=== PATIENT | male | born 1965 | race African-American/Black ===

== ENCOUNTER 2017-02-20 09:46 | Emergency (ER) | payer OTHER ==
[~2017-02-20] VITALS: Ht 182.9 cm; Wt 92.0 kg
[~2017-02-20 09:46] MED LIST: FLAG500T PO; HYDR-3533 PO; LEVA500T33 PO; OMEP20TA39 PO
[2017-02-20 09:48] VITALS: BP 136/90; PULSE 80; RESP 20; TEMP 97.9; O2SAT 98
[2017-02-20] MEDS ORDERED: VITA200013 PO (09:50)
--- NOTE | 2017-02-20 10:14 | PD ---
HPI Chief Complaint: Abdominal Pain Time Seen by Provider: 10:14 Travel History International Travel<30 days: No Contact w/Intl Traveler<30days: No Traveled to known affect area: No History of Present Illness HPI 51-year-old male came to the emergency room with severe right upper quadrant pain that started 3 days ago. No history of vomiting or diarrhea. No history of constipation. Patient says pain is 8 out of 10 and feels like a severe stabbing pain. No radiation of the pain. He's never had this kind of pain in the past. No history of fever or chills. Patient has never had any abdominal surgeries in the past. He claims to be otherwise a healthy person. As he takes vitamin D pills every day but stopped taking a few days ago. He occasionally drinks alcohol maybe once a month. [facility] Past Medical History Narrative Medical List of his past medical, surgical, social and family history is reviewed from the nursing note. Heart Rhythm Problems: No Cardiac Catheterization: No Cardiovascular Problems: No High Cholesterol: Yes Congestive Heart Failure: No Diabetes: No GERD: Yes Influenza Vaccination: No Past Surgical History Coronary Artery Bypass Graft: No Oral Surgery: Yes (WISDOM TEETH) Tonsillectomy: Yes Social History Alcohol Use: No Tobacco Use: No Substance Use: No Allergies-Medications (Allergen,Severity, Reaction): Coded Allergies: No Known Allergies (Verified , 02/20/17) Comments No known drug allergies. Reported Meds & Prescriptions Reported Meds & Active Scripts Active Protonix (Pantoprazole Sodium) 20 Mg Tab 20 Mg PO DAILY Reported Vitamin D (Cholecalciferol) 2,000 Unit Cap Unknown Dose PO DAILY Narrative Medication List of his allergies reviewed from the nursing note. Review of Systems Except as stated in HPI: all other systems reviewed are Neg Physical Exam Narrative GENERAL: Awake, alert, moderate distress SKIN: Focused skin assessment warm/dry. HEAD: Atraumatic. Normocephalic. EYES: Pupils equal and round. No scleral icterus. No injection or drainage. ENT: No nasal bleeding or discharge. Mucous membranes pink and moist. NECK: Trachea midline. No JVD. CARDIOVASCULAR: Regular rate and rhythm. No murmur appreciated. RESPIRATORY: No accessory muscle use. Clear to auscultation. Breath sounds equal bilaterally. GASTROINTESTINAL: Right upper quadrant tenderness with guarding. Nondistended. Hepatic and splenic margins not palpable. MUSCULOSKELETAL: No obvious deformities. No clubbing. No cyanosis. No edema. NEUROLOGICAL: Awake and alert. No obvious cranial nerve deficits. Motor grossly within normal limits. Normal speech. PSYCHIATRIC: Appropriate mood and affect; insight and judgment normal. Data Data Last Documented VS Orders Orders Complete Blood Count With Diff (02/20/17 10:37) Comprehensive Metabolic Panel (02/20/17 10:37) Lipase (02/20/17 10:37) Urinalysis - C+S If Indicated (02/20/17 10:37) Ct Abd/Pel W/O Iv Contrast (02/20/17 10:37) Iv Access Insert/Monitor (02/20/17 10:37) Ecg Monitoring (02/20/17 10:37) Oximetry (02/20/17 10:37) Morphine Inj (Morphine Inj) (02/20/17 10:45) Ondansetron Inj (Zofran Inj) (02/20/17 10:45) Sodium Chlor 0.9% 1000 Ml Inj (Ns 1000 M (02/20/17 10:37) Sodium Chloride 0.9% Flush (Ns Flush) (02/20/17 10:45) Ed Poc Ultrasound (02/20/17 10:37) Labs Laboratory Tests Test 02/20/17 10:50 02/20/17 12:10 White Blood Count 5.6 TH/MM3 Red Blood Count 5.01 MIL/MM3 Hemoglobin 14.6 GM/DL Hematocrit 43.0 % Mean Corpuscular Volume 85.8 FL Mean Corpuscular Hemoglobin 29.2 PG Mean Corpuscular Hemoglobin Concent 34.0 % Red Cell Distribution Width 12.6 % Platelet Count 239 TH/MM3 Mean Platelet Volume 9.8 FL Neutrophils (%) (Auto) 52.8 % Lymphocytes (%) (Auto) 34.6 % Monocytes (%) (Auto) 9.4 % Eosinophils (%) (Auto) 2.7 % Basophils (%) (Auto) 0.5 % Neutrophils # (Auto) 2.9 TH/MM3 Lymphocytes # (Auto) 1.9 TH/MM3 Monocytes # (Auto) 0.5 TH/MM3 Eosinophils # (Auto) 0.1 TH/MM3 Basophils # (Auto) 0.0 TH/MM3 CBC Comment DIFF FINAL Differential Comment Blood Urea Nitrogen 11 MG/DL Creatinine 1.11 MG/DL Random Glucose 122 MG/DL Total Protein 7.5 GM/DL Albumin 3.8 GM/DL Calcium Level 8.5 MG/DL Alkaline Phosphatase 67 U/L Aspartate Amino Transf (AST/SGOT) 35 U/L Alanine Aminotransferase (ALT/SGPT) 55 U/L Total Bilirubin 0.4 MG/DL Sodium Level 137 MEQ/L Potassium Level 4.4 MEQ/L Chloride Level 107 MEQ/L Carbon Dioxide Level 25.6 MEQ/L Anion Gap 4 MEQ/L Estimat Glomerular Filtration Rate 85 ML/MIN Lipase 279 U/L Urine Color YELLOW Urine Turbidity CLEAR Urine pH 6.5 Urine Specific [place] 1.024 Urine Protein NEG mg/dL Urine Glucose (UA) NEG mg/dL Urine Ketones NEG mg/dL Urine Occult Blood NEG Urine Nitrite NEG Urine Bilirubin NEG Urine Urobilinogen LESS THAN 2.0 MG/DL Urine Leukocyte Esterase NEG Urine RBC LESS THAN 1 /hpf Urine WBC LESS THAN 1 /hpf Urine Mucus FEW /lpf Microscopic Urinalysis Comment CULT NOT INDICATED MDM Medical Decision Making Medical Screen Exam Complete: Yes Emergency Medical Condition: Yes Medical Record Reviewed: Yes Differential Diagnosis Acute cholecystitis, biliary colic, acute pancreatitis, acute appendicitis Narrative Course 1:31 PM blood test results and the CAT scan are completely within normal limit. My bedside ultrasound earlier did not show any cholelithiasis. I'll discharge the patient home. He was medicated for pain. Procedures Procedure Narrative Emergency department right upper quadrant ultrasound was performed with patient consent. Curvilinear probe was used in the transverse and sagittal views within the right upper quadrant revealing gallbladder without obvious wall thickening, cholecystic fluid, or cholelithiasis. EKG Prior to Arrival: No Diagnosis Primary Impression: Abdominal pain Qualified Codes: R10.11 - Right upper quadrant pain Referrals: Primary Care Physician Additional Instructions: Please return to the ER if the condition worsens or any other new concerns. Take the medication as per the prescription direction. Follow-up with your primary Care physician in couple of days. Asked them to refer you to a GI specialist for an endoscopy. Med/Other Pt SpecificInfo: Prescription(s) given Scripts Pantoprazole (Protonix) 20 Mg Tab 20 MG PO DAILY for Reflux, #30 TAB 0 Refills Prov: Kaiser Busby MD 02/20/17 Disposition: 01 DISCHARGE HOME Condition: Stable Jonathon Busybnti R. MD Feb 20, 2017 10:14
[2017-02-20] MEDS ORDERED: SODIUM CHLOR 0.9% 1000 ML INJ 1,000 ML IV SCH (10:37)
[2017-02-20] MEDS ORDERED: SODIUM CHLORIDE 0.9% FLUSH 10 ML FLUSH IV FLUSH PRN (10:45)
[2017-02-20] MEDS ORDERED: MORPHINE SULFATE 4 MG/ML INJ IV PUSH ONE (10:45)
[2017-02-20] MEDS ORDERED: ONDANSETRON HCL 4 MG/2 ML VIAL IVP ONE (10:45)
[2017-02-20 10:56] VITALS: RESP 16; O2SAT 100
[2017-02-20 11:06] VITALS: RESP 16
[2017-02-20 11:25] LABS: AUTOMATED NEUTROPHIL # 2.9 TH/MM3 (1.8-7.7); BASOPHIL % 0.5 % (0.0-2.0); EOSINOPHIL # 0.1 TH/MM3 (0-0.4); EOSINOPHIL % 2.7 % (0.0-4.0); HEMO FLAGS DIFF FINAL; LYMPH % 34.6 % (9.0-44.0); LYMPHOCYTE # 1.9 TH/MM3 (1.0-4.8); MEAN CELL VOLUME 85.8 FL (80.0-100.0); MEAN CORPUSCULAR HEMOGLOBIN 29.2 PG (27.0-34.0); MONO % 9.4 % (0.0-8.0); NEUT % 52.8 % (16.0-70.0); PLATELET COUNT 239 TH/MM3 (150-450); RED BLOOD COUNT 5.01 MIL/MM3 (4.50-5.90); RED CELL DISTRIBUTION WIDTH 12.6 % (11.6-17.2); WHITE BLOOD COUNT 5.6 TH/MM3 (4.0-11.0)
[2017-02-20 11:42] LABS: ALT (GPT) 55 U/L (12-78)
[2017-02-20 11:45] LABS: ALKALINE PHOSPHATASE 67 U/L (45-117); TOTAL BILIRUBIN ADULT 0.4 MG/DL (0.2-1.0)
[2017-02-20 11:51] LABS: ANION GAP 4 MEQ/L (5-15); AST (GOT) 35 U/L (15-37); BICARBONATE 25.6 MEQ/L (21.0-32.0); BLOOD UREA NITROGEN 11 MG/DL (7-18); CHLORIDE 107 MEQ/L (98-107); GLOMERULAR FILTRATION RATE 85 ML/MIN (>89); SODIUM (NA) 137 MEQ/L (136-145)
[2017-02-20 12:21] LABS: POTASSIUM 4.4 MEQ/L (3.5-5.1)
[2017-02-20 12:41] LABS: BLOOD, URINE NEG (NEG); COMMENT (UR) CULT NOT INDICATED; CULTURE IF INDICATED CULT NOT INDICATED; GLUCOSE,URINE NEG (NEG); KETONE, URINE NEG (NEG); MUCUS URINE FEW /lpf (OCC); NITRITE,URINE NEG (NEG); PH, URINE 6.5 (5.0-8.5); URINE COLOR YELLOW (YELLW/STRAW)
--- NOTE | 2017-02-20 12:51 | RADRPT ---
EXAM DATE/TIME: 02/20/2017 12:17 [facility] COMPARISON: CT ABDOMEN & PELVIS W CONTRAST, March 20, 2014, 13:49. INDICATIONS : Right abdomen pain. ORAL CONTRAST: No oral contrast ingested. RADIATION DOSE: 9.96 CTDIvol (mGy) MEDICAL HISTORY : None SURGICAL HISTORY : None. ENCOUNTER: Initial ACUITY: 1 day PAIN SCALE: 4/10 LOCATION: Right abdomen TECHNIQUE: Volumetric scanning of the abdomen and pelvis was performed. Using automated exposure control and ad justment of the mA and/or kV according to patient size, radiation dose was kept as low as reasonably achievable to obtain optimal diagnostic quality images. DICOM format image data is available electro nically for review and comparison. FINDINGS: LOWER LUNGS: The visualized lower lungs are clear. LIVER: Diffuse decreased density without lesion. There is no dilation of the biliary tree. No calcified ga llstones. SPLEEN: Normal size without lesion. PANCREAS: Within normal limits. KIDNEYS: Normal in size and shape. There is no mass, stone, or hydronephrosis. ADRENAL GLANDS: Within normal limits. VASCULAR: There is no aortic aneurysm. There is mild atherosclerotic disease in the iliac arteries. BOWEL/MESENTERY: The stomach, small bowel, and colon demonstrate no acute abnormality. There is no free intraperitone al air or fluid. Appendix and terminal ileum are normal. ABDOMINAL WALL: Within normal limits. RETROPERITONEUM: There is no lymphadenopathy. BLADDER: No wall thickening or mass. REPRODUCTIVE: Within normal limits. INGUINAL: There is no lymphadenopathy or hernia. MUSCULOSKELETAL: No acute abnormality. CONCLUSION: 1. No abnormality is identified to explain the right-sided abdominal pain. Appendix and terminal ileu m have a normal appearance. 2. Hepatic steatosis. Christopher Dennison MD on February 20, 2017 at 12:46 Board Certified Radiologist. This report was verified electronically.
[2017-02-20] MEDS ORDERED: PANT20 PO (13:33)
== END 2017-02-20 13:56 | disposition home or self-care (01) ==
LOC: NEPC 09:46
DX: R10.11 Right upper quadrant pain (principal); E78.00 Pure hypercholesterolemia, unspecified; Z87.19 Personal history of other diseases of the digestive system
CPT/HCPCS: 74176; 80053; 81001; 83690; 85025; 96374; 96375; 99285; J2270; J2405; J7030

== ENCOUNTER 2017-08-07 12:34 | Emergency (ER) | payer OTHER ==
[~2017-08-07 12:34] MED LIST changes: -FLAG500T PO; -HYDR-3533 PO; -LEVA500T33 PO; -OMEP20TA39 PO; +PANT20 PO; +VITA200013 PO
[2017-08-07 14:13] VITALS: BP 171/94; PULSE 72; RESP 16; TEMP 97.8; O2SAT 98
== END 2017-08-07 14:12 | disposition left against medical advice (07) ==
LOC: NED 12:34
DX: Z53.21 Procedure and treatment not carried out due to patient leaving prior to being seen by health care provider (principal)
CPT/HCPCS: 99281